=== PATIENT | female | born 1980 | race African-American/Black ===

== ENCOUNTER 2021-06-16 10:39 | Inpatient (IN) ==
--- NOTE | 2021-06-16 11:17 | DR.GENAD ---
HPI Time Seen Time Seen by Provider: 06/16/21 11:14 Complaint/Symptoms Chief Complaint Doctors Comments: 40 y/o female, seen here 3 days ago for new onset of DM, presents feeling worse. Started with nausea, vomiting last pm. Can't keep anything down. Denies abdominal pain. No BM x 10 days. + lightheaded, dizzy, with palpitations, feeling short of breath. No fever, cough, chest pain. Was started on metformin 2 days ago. Thinks she has kept that down. COVID-19 Coronavirus risk:travel/contact w/high risk person: No Has patient experienced Coronavirus symptoms: No Nurses notes reviewed Nurses Notes Review: Yes Source History Provided: Patient Mode of Arrival Mode of Arrival: Ambulatory PMH PMH Past Medical History: Diabetes, Dyslipidemia and Hypothyroidism Past Surgical History: No Family History Family Medical History: Diabetes Mellitus Social History Does patient currently use any type of tobacco product: No Does any household member use tobacco: No Do you use any recreational Drugs:: No ROS Review of Systems Constitutional: Weakness; negative Fever Eyes: No Symptoms Reported ENTM: No Symptoms Reported Respiratoy: Short of Breath Cardiovascular: No Symptoms Reported Gastrointestinal/Abdominal: Constipation, Nausea and Vomiting Genitourinary: No Symptoms Reported Neurological: Weakness and Dizziness Musculoskeletal: No Symptoms Reported Integumentary: No Symptoms Reported Hematologic/Lymphatic: No Symptoms Reported Psychiatric: No Symptoms Reported All Other Systems: Reviewed and Negative PE Vital Signs Vitals: Temperature 97.6 F Pulse Rate 73 Respiratory Rate 25 Blood Pressure [Left Arm] 126/75 Blood Pressure 137/83 O2 Sat by Pulse Oximetry 100 General Limitations: No Limitations General Appearance: Alert and In No Apparent Distress Eyes Eye exam: Normal Appearance, PERRL and EOMI ENT ENT Exam: Normal Exam and Mucous Membranes Moist Throat Exam: Normal Inspection Neck Neck Exam: Normal Inspection and Full ROM Chest Chest Inspection: Normal Inspection Respiratory Respiratory Exam: Normal Lung Sounds Bilat; negative Accessory Muscle Use and Respiratory Distress Respiratory Exam: Bilateral: Clear to Auscultation Cardiovascular Cardiovascular Exam: Regular Rate, Normal Rhythm and Normal Heart Sounds Abdominal Exam Abdominal Exam: Normal Inspection, Normal Bowel Sounds and Soft; negative Tenderness Extremities Extremities Exam: Normal Inspection and Full ROM; negative Edema Back Back Exam: Normal Inspection Neurologic Neurological Exam: Alert, Oriented X3 and CN II-XII Intact; negative Motor Sensory Deficit Psychiatric Psychiatric Exam: Normal Affect Skin Skin Exam: Warm and Dry MDM Differential Diagnosis Differential Diagnosis: uncontrolled DM, DKA, vomiting, gastritis, pancreatitis COURSE Treatment Treatment: 40 y/o female, with recent h/o new onset DM, returns with persistent vomiting since last pm. Feels dyspnea, pulse ox 100%. W/u initiated. Given IV fluids, IV zofran. 1327 - glucose 337, low bicarb, small acetone. Given IV regualar insulin, 4 U. Recommend admission for further treatment. 1445 - di scussed with Dr Gonzales initially, accepts the admission. Then realized we had the wrong [employer], sees Leny Bhandari, is a pt of Dr Lazar. Disucssed with him, accepts the admission. [facility]OR Labs Reviewed Laboratory Results Reviewed?: Yes Result Diagrams: 06/16/21 11:47 06/16/21 11:47 Laboratory: WBC 8.7 X10^3/uL (3.6-10.0) 06/16/21 11:47 RBC 5.72 X10^6/uL (3.5-5.4) H 06/16/21 11:47 Hgb 16.6 g/dL (12.0-16.0) H 06/16/21 11:47 Hct 50.5 % (36.0-47.0) H 06/16/21 11:47 MCV 88.2 fL (80.0-100.0) 06/16/21 11:47 MCH 29.0 pg (27.0-34.0) 06/16/21 11:47 MCHC 32.9 g/dL (33.0-35.0) L 06/16/21 11:47 RDW 13.2 % (11.6-16.5) 06/16/21 11:47 Plt Count 357 X10^3/uL (150.0-450.0) 06/16/21 11:47 MPV 9.5 fL (7.4-11.0) 06/16/21 11:47 Neut % (Auto) 71.1 % (42.0-75.0) 06/16/21 11:47 Lymph % (Auto) 21.4 % (21.0-51.0) 06/16/21 11:47 [place] % (Auto) 6.6 % (0.0-13.0) 06/16/21 11:47 Eos % (Auto) 0.2 % (0.9-2.9) L 06/16/21 11:47 Baso % (Auto) 0.7 % (0.2-1.0) 06/16/21 11:47 Neut # (Auto) 6.2 x10^3/uL (2.2-4.8) H 06/16/21 11:47 Lymph # (Auto) 1.9 X10^3/uL (1.3-2.9) 06/16/21 11:47 [place] # (Auto) 0.6 x10^3/uL (0.3-0.8) 06/16/21 11:47 Eos # (Auto) 0.0 x10^3/uL (0.0-0.2) 06/16/21 11:47 Baso # (Auto) 0.1 X10^3/uL (0.0-0.1) 06/16/21 11:47 Absolute Nucleated RBC 0.2 /100WBC 06/16/21 11:47 Sample Site Rr 06/16/21 11:39 ABG pH 7.190 (7.35-7.45) L* 06/16/21 11:39 ABG pCO2 14.0 mmHg (35.0-45.0) L* 06/16/21 11:39 ABG pO2 113.0 mmHg (80.0-100.0) H 06/16/21 11:39 ABG HCO3 5.3 mmol/L (22-26) L* 06/16/21 11:39 ABG O2 Saturation 97.0 % (90-100) 06/16/21 11:39 ABG Base Excess -20.5 mmol/L (-2.0-2.0) L 06/16/21 11:39 Jose Test Pos 06/16/21 11:39 A-a Gradient 19.0 mmHg 06/16/21 11:39 FiO2 21.0 06/16/21 11:39 Blood Gas Comments Roseanna well cb 06/16/21 11:39 Sodium 127 mmol/L (136-145) L 06/16/21 11:47 Corrected Sodium 133 mmol/L (136-145) L 06/16/21 11:47 Potassium 5.6 mmol/L (3.5-5.1) H 06/16/21 11:47 Chloride 95 mmol/L (98-107) L 06/16/21 11:47 Carbon Dioxide 11.2 mmol/L (21-32) L* 06/16/21 11:47 BUN 9 mg/dL (7-18) 06/16/21 11:47 Creatinine 1.11 mg/dL (0.55-1.02) H 06/16/21 11:47 Est GFR (MDRD) Af Amer > 60 (>60) 06/16/21 11:47 Est GFR (MDRD) Non-Af 57 (>60) L 06/16/21 11:47 Glucose 357 mg/dL (65-99) H 06/16/21 11:47 POC Glucose (mg/dL) 277 mg/dL (65-99) H 06/16/21 15:10 Lactic Acid 1.4 mmol/L (0.4-2.0) 06/16/21 11:47 Calcium 9.0 mg/dL (8.5-10.1) 06/16/21 11:47 Corrected Calcium TNP 06/16/21 11:47 Total Bilirubin 0.60 mg/dL (0.2-1.0) 06/16/21 11:47 AST 21 Units/L (15-37) 06/16/21 11:47 ALT 25 Units/L (12-78) 06/16/21 11:47 Alkaline Phosphatase 117 Units/L (46-116) H 06/16/21 11:47 Creatine Kinase 90 Units/L (26-192) 06/16/21 11:47 CK-MB (CK-2) < 1.0 ng/mL (0-4.0) 06/16/21 11:47 CK/CKMB % Calc 1.1 % (<4) 06/16/21 11:47 Troponin I High Sens 4.0 ng/L (4.0-60.0) 06/16/21 11:47 Total Protein 9.3 g/dL (6.4-8.2) H 06/16/21 11:47 Albumin 4.4 g/dL (3.4-5.0) 06/16/21 11:47 Globulin 4.9 g/dL (2.5-4.5) H 06/16/21 11:47 Albumin/Globulin Ratio 0.9 Ratio (1.1-2.1) L 06/16/21 11:47 Lipase 137 Units/L (73-393) 06/16/21 11:47 Specimen Type Clean catch urine 06/16/21 12:52 Urine Color Pale yellow (YELLOW) 06/16/21 12:52 Urine Appearance Clear (CLEAR) 06/16/21 12:52 Urine pH 5.0 (5.0 - 8.0) 06/16/21 12:52 Ur Specific [place] 1.030 (1.000-1.030) 06/16/21 12:52 Urine Protein 3+ (NEGATIVE) 06/16/21 12:52 Urine Glucose (UA) 4+ (NEGATIVE) 06/16/21 12:52 Urine Ketones 4+ (NEGATIVE) 06/16/21 12:52 Urine Blood 4+ (NEGATIVE) 06/16/21 12:52 Urine Nitrite Negative (NEGATIVE) 06/16/21 12:52 Urine Bilirubin Negative (NEGATIVE) 06/16/21 12:52 Urine Urobilinogen Normal (NORMAL) 06/16/21 12:52 Ur Leukocyte Esterase Negative (NEGATIVE) 06/16/21 12:52 Urine RBC 5-10 /HPF (0-3) A 06/16/21 12:52 Urine WBC 3-5 /HPF (0-5) 06/16/21 12:52 Ur Squamous Epith Cells Few /HPF (NEGATIVE) 06/16/21 12:52 Urine Bacteria Trace /HPF (NEGATIVE) 06/16/21 12:52 Urine Trichomonas Few /HPF (NEGATIVE) 06/16/21 12:52 Urine Yeast Moderate /HPF (NEGATIVE) 06/16/21 12:52 Ur Culture Indicated? No/not indicated 06/16/21 12:52 Acetone, Semi-Quant Small (NEGATIVE) H 06/16/21 11:47 Other Results Comments: ABG shows low pH. Bicarb low. Glucose 357. XRAY XRAY Interpreted by: Both X-ray Results: CXR without acute abnormalities. EKG Rate: 72 [place]: Normal Rhythm: NSR Block: None Hypertrophy: LAE ST: Nonsp Opioid Opioid Risk Tool Age (Scottie box if 16-45): No History of Preadolescent Sexual Abuse: No Total: 0 Total Score Risk Category: Low Risk Copyright: Jasiel ZUNIGA predicting aberrant behaviors Diagnosis Discharge Problem: Acidosis Uncontrolled diabetes mellitus Qualifiers: Diabetes mellitus type: type 2 Glycemic state: with hyperglycemia Qualified Code(s): E11.65 - Type 2 diabetes mellitus with hyperglycemia Vomiting Qualifiers: Vomiting type: unspecified Nausea presence: with nausea Qualified Code(s): R11.2 - Nausea with vomiting, unspecified
[2021-06-16] MEDS ORDERED: NS 1,000 ML IV 1,000 ML ONE ×3 (11:18→17:13)
[2021-06-16] MEDS ORDERED: NS 1,000 ML IV 1,000 ML IV ONE ×2 (11:22→13:27)
[2021-06-16 11:44] LABS: ABG BASE EXCESS -20.5 mmol/L (-2.0-2.0)
[2021-06-16 11:45] LABS: ABG ALLEN TEST POS; ABG HCO3 5.3 mmol/L (22-26)
[2021-06-16 11:54] LABS: BASOPHILS # (AUTO) 0.1 X10^3/uL (0.0-0.1); BASOPHILS % (AUTO) 0.7 % (0.2-1.0); EOSINOPHILS % (AUTO) 0.2 % (0.9-2.9); HEMATOCRIT 50.5 % (36.0-47.0); HEMOGLOBIN 16.6 g/dL (12.0-16.0); LYMPHOCYTES # (AUTO) 1.9 X10^3/uL (1.3-2.9); LYMPHOCYTES % (AUTO) 21.4 % (21.0-51.0); MEAN CORPUSCULAR HGB CONC 32.9 g/dL (33.0-35.0); MEAN CORPUSCULAR VOLUME 88.2 fL (80.0-100.0); MEAN PLATELET VOLUME 9.5 fL (7.4-11.0); MONOCYTES # (AUTO) 0.6 x10^3/uL (0.3-0.8); MONOCYTES % (AUTO) 6.6 % (0.0-13.0); NEUTROPHILS # (AUTO) 6.2 x10^3/uL (2.2-4.8); NEUTROPHILS % (AUTO) 71.1 % (42.0-75.0); RED BLOOD COUNT 5.72 X10^6/uL (3.5-5.4); RED CELL DISTRIBUTION WIDTH 13.2 % (11.6-16.5); WHITE BLOOD COUNT 8.7 X10^3/uL (3.6-10.0)
[2021-06-16 12:10] LABS: LACTIC ACID 1.4 mmol/L (0.4-2.0)
[2021-06-16 12:18] LABS: SERUM ACETONE SMALL (NEGATIVE)
[2021-06-16 12:34] LABS: ALANINE AMINOTRANSFERASE 25 Units/L (12-78); ALBUMIN 4.4 g/dL (3.4-5.0); ALKALINE PHOSPHATASE 117 Units/L (46-116); ASPARTATE AMINO TRANSFERASE 21 Units/L (15-37); BLOOD UREA NITROGEN 9 mg/dL (7-18); CHLORIDE 95 mmol/L (98-107); CKMB % 1.1 % (<4); COR NA(FOR HYPERGLY) 133 mmol/L (136-145); CREATINE KINASE 90 Units/L (26-192); CREATINE KINASE MB < 1.0 ng/mL (0-4.0); CREATININE 1.11 mg/dL (0.55-1.02); LIPASE 137 Units/L (73-393); SODIUM 127 mmol/L (136-145); TOTAL PROTEIN 9.3 g/dL (6.4-8.2); eGFR NON BLACK RACES 57 (>60)
[2021-06-16 12:38] LABS: CARBON DIOXIDE 11.2 mmol/L (21-32)
--- NOTE | 2021-06-16 12:41 | RAD ---
HISTORYChest painSTUDYChest AP [id number] t size is normal. Jessica are normal. Lung pabon are clear. No pleural effusions are identified. Bony thorax is unremarkable.IMPRESSIONNo significant abnormality identifiedElectronically signed by: SILVIA MORGAN (Jun 16, 2021 12:40:21)
[2021-06-16 13:08] LABS: BILIRUBIN,URINE NEGATIVE (NEGATIVE); BLOOD/HEMOGLOBIN,URINE 4+ (NEGATIVE); GLUCOSE, URINE 4+ (NEGATIVE); KETONES,URINE 4+ (NEGATIVE); LEUKOCYTE ESTERASE ,URINE NEGATIVE (NEGATIVE); NITRITES,URINE NEGATIVE (NEGATIVE); PROTEIN,URINE 3+ (NEGATIVE); UROBILINOGEN,URINE NORMAL (NORMAL)
[2021-06-16 13:18] LABS: APPEARANCE,URINE CLEAR (CLEAR); COLOR,URINE PALE YELLOW (YELLOW)
[2021-06-16 13:19] LABS: BACTERIA,URINE TRACE /HPF (NEGATIVE); SQUAMOUS EPITHELIAL CELL,UR FEW /HPF (NEGATIVE); TRICHOMONAS,URINE FEW /HPF (NEGATIVE); YEAST,URINE MODERATE /HPF (NEGATIVE)
[2021-06-16] MEDS ORDERED: NovoLIN R (or HumuLIN R) IV ONE (13:28)
[2021-06-16] MEDS: ZOFRAN INJ 4 MG VIAL IVP ONE ×2 (13:30→14:13)
[2021-06-16] MEDS ORDERED: ZOFRAN INJ 4 MG VIAL ONE ×2 (14:03→16:28)
[2021-06-16] MEDS ORDERED: NovoLIN R (or HumuLIN R) ONE (14:06)
[2021-06-16] MEDS ORDERED: ZOFRAN INJ 4 MG VIAL IVP ONE (15:31)
[2021-06-16] MEDS ORDERED: PROTONIX INJ 40 MG VIAL IVP ONE (15:31)
[2021-06-16] MEDS ORDERED: PROTONIX INJ 40 MG VIAL ONE (16:28)
[2021-06-16] MEDS ORDERED: ZOFRAN INJ 4 MG VIAL IVP PRN (17:32)
[2021-06-16] MEDS: NS 1,000 ML IV 1,000 ML IV SCH (17:59)
[2021-06-16] MEDS: NovoLIN R (or HumuLIN R) SUBCUT PRN ×3 (18:11→21:49)
[2021-06-16] MEDS: TYLENOL 325 MG TAB PO PRN (18:12)
[2021-06-16] MEDS ORDERED: XYLOCAINE 1 % (PLAIN) ONE (19:49)
[2021-06-16] MEDS ORDERED: SNACK - Diabetic Appropriate PO SCH (20:00)
[2021-06-16] MEDS: SNACK - Diabetic Appropriate PO SCH (20:35)
[2021-06-16 20:38] LABS: ALANINE AMINOTRANSFERASE 20 Units/L (12-78); ALBUMIN 3.6 g/dL (3.4-5.0); ALKALINE PHOSPHATASE 94 Units/L (46-116); ASPARTATE AMINO TRANSFERASE 12 Units/L (15-37); BLOOD UREA NITROGEN 6 mg/dL (7-18); CHLORIDE 100 mmol/L (98-107); COR NA(FOR HYPERGLY) 133 mmol/L (136-145); CREATININE 0.67 mg/dL (0.55-1.02); SODIUM 129 mmol/L (136-145); TOTAL PROTEIN 7.4 g/dL (6.4-8.2); eGFR NON BLACK RACES > 60 (>60)
[2021-06-16 20:40] LABS: CARBON DIOXIDE 7.9 mmol/L (21-32)
--- NOTE | 2021-06-16 20:48 | RAD ---
EXAM: CHEST X-RAYHISTORY: Central line placement verification.TECHNIQUE: AP CXR dated June 16, 2021 at 8:13 PM.COMPARISON: CXR dated June 16, 2021 at 11:30 AMFINDINGS:There is a right subclavian central venous catheter with distal tip in the proximal right atrium, approximately 3 cm distal to the optimal proximal cavoatrial junction. Consider partial withdrawal for optimal positioning and to mitigate risk of inducing cardiac ectopy as clinically warranted. Recommend careful clinical correlation to ensure venous blood return.The heart size and mediastinum are within normal limits. The lung pabon and costophrenic angles are clear. There is no acute parenchymal infiltrate, pleural effusion, or pneumothorax seen. The visualized bony structures are within normal limits.IMPRESSION:1. No evidence for acute cardiopulmonary disease seen.2. Right subclavian central venous catheter with distal tip in the proximal right atrium, approximately 3 cm distal to the optimal proximal cavoatrial junction.3. Consider partial withdrawal for optimal positioning and to mitigate risk of inducing cardiac ectopy as clinically warranted.4. Recommend careful clinical correlation to ensure venous blood return.Electronically signed by: Estefania Fuentes (Jun 16, 2021 20:48:24)
[2021-06-16] MEDS: NORCO 5/325 MG TAB PO PRN (21:48)
[2021-06-16] MEDS ORDERED: ULTRAM PO PRN (22:55)
[2021-06-17] MEDS: NS 1,000 ML IV 1,000 ML IV SCH (01:41)
[2021-06-17] MEDS: NovoLIN R (or HumuLIN R) SUBCUT PRN ×2 (01:42→03:36)
[2021-06-17 05:39] LABS: BASOPHILS # (AUTO) 0.1 X10^3/uL (0.0-0.1); BASOPHILS % (AUTO) 0.7 % (0.2-1.0); EOSINOPHILS # (AUTO) 0.1 x10^3/uL (0.0-0.2); EOSINOPHILS % (AUTO) 0.7 % (0.9-2.9); HEMATOCRIT 40.6 % (36.0-47.0); LYMPHOCYTES # (AUTO) 2.6 X10^3/uL (1.3-2.9); LYMPHOCYTES % (AUTO) 28.1 % (21.0-51.0); MEAN CORPUSCULAR HEMOGLOBIN 28.8 pg (27.0-34.0); MEAN CORPUSCULAR HGB CONC 32.8 g/dL (33.0-35.0); MEAN CORPUSCULAR VOLUME 87.9 fL (80.0-100.0); MEAN PLATELET VOLUME 9.4 fL (7.4-11.0); MONOCYTES # (AUTO) 0.9 x10^3/uL (0.3-0.8); MONOCYTES % (AUTO) 10.3 % (0.0-13.0); NEUTROPHILS # (AUTO) 5.5 x10^3/uL (2.2-4.8); NEUTROPHILS % (AUTO) 60.2 % (42.0-75.0); RED BLOOD COUNT 4.62 X10^6/uL (3.5-5.4); RED CELL DISTRIBUTION WIDTH 13.3 % (11.6-16.5); WHITE BLOOD COUNT 9.1 X10^3/uL (3.6-10.0)
[2021-06-17 05:49] LABS: ALANINE AMINOTRANSFERASE 18 Units/L (12-78); ALBUMIN 3.4 g/dL (3.4-5.0); ALKALINE PHOSPHATASE 84 Units/L (46-116); ASPARTATE AMINO TRANSFERASE 14 Units/L (15-37); BLOOD UREA NITROGEN 5 mg/dL (7-18); CALCIUM 7.9 mg/dL (8.5-10.1); CHLORIDE 102 mmol/L (98-107); COR NA(FOR HYPERGLY) 132 mmol/L (136-145); CREATININE 0.62 mg/dL (0.55-1.02); SODIUM 130 mmol/L (136-145); eGFR NON BLACK RACES > 60 (>60)
[2021-06-17 05:57] LABS: ABG BASE EXCESS -15.7 mmol/L (-2.0-2.0)
[2021-06-17 05:59] LABS: ABG ALLEN TEST POS; ABG HCO3 9.6 mmol/L (22-26)
[2021-06-17 06:05] LABS: CARBON DIOXIDE 9.3 mmol/L (21-32)
[2021-06-17] MEDS ORDERED: POTASSIUM CHL 60 MEQ/NS 0.45% 500 ML IV PRN (06:06)
[2021-06-17] MEDS ORDERED: POTASSIUM CHLORIDE LIQ 20 MEQ UDC PO PRN (06:06)
[2021-06-17] MEDS ORDERED: K-RIDER 10 MEQ/NS 100 ML 10 MEQ/100 ML BAG IV PRN (06:06)
[2021-06-17] MEDS ORDERED: KLOR-CON PO PRN (06:06)
[2021-06-17] MEDS ORDERED: POTASSIUM CHL 40 MEQ/NS 0.45% 500 ML IV PRN (06:06)
[2021-06-17] MEDS ORDERED: MICRO K EXTEN CAP 10 MEQ PO PRN (06:06)
[2021-06-17] MEDS: K-DUR TAB 20 MEQ PO PRN ×3 (06:14→22:34)
[2021-06-17] MEDS: NORCO 5/325 MG TAB PO PRN (06:15)
[2021-06-17 06:18] LABS: HEMOGLOBIN 13.3 g/dL (12.0-16.0)
[2021-06-17] MEDS ORDERED: PROTONIX INJ 40 MG VIAL IVP SCH (09:00)
[2021-06-17] MEDS ORDERED: ZANAFLEX PO PRN (09:13)
[2021-06-17 09:33] LABS: SERUM ACETONE SMALL (NEGATIVE)
[2021-06-17 09:46] LABS: CKMB % 0.8 % (<4); CREATINE KINASE 128 Units/L (26-192); CREATINE KINASE MB < 1.0 ng/mL (0-4.0); TSH (3RD GENERATION) 1.099 uIU/mL (0.358-3.74)
[2021-06-17] MEDS: PROTONIX TAB 40 MG PO SCH (09:48)
[2021-06-17] MEDS: D5W 1,000 ML IV 1,000 ML IV SCH ×2 (09:53→22:30)
[2021-06-17] MEDS: MYXREDLIN 100 UNIT/100 ML BAG 100 UNIT/100 ML PLAST..BAG IV PRN (09:54)
[2021-06-17] MEDS: MAGNESIUM SULFATE 1 GRAM/100 mL PREMIX 1 G/100 ML BAG IV PRN ×2 (09:54→11:33)
[2021-06-17 13:10] LABS: BLOOD UREA NITROGEN 4 mg/dL (7-18); CARBON DIOXIDE 15.6 mmol/L (21-32); CHLORIDE 100 mmol/L (98-107); COR NA(FOR HYPERGLY) 134 mmol/L (136-145); CREATININE 0.76 mg/dL (0.55-1.02); SODIUM 130 mmol/L (136-145); eGFR NON BLACK RACES > 60 (>60)
--- NOTE | 2021-06-17 13:22 | RAD ---
HISTORYDiabetic ketoacidosisSTUDYChest AP [id number] e is a right-sided central line with its tip likely just distal to the cavoatrial junction. Heart size is normal. Jessica are normal. Lung pabon are clear. No pleural effusion or pneumothorax is identified. Bony thorax is unremarkable.IMPRESSIONNo significant abnormality identifiedElectronically signed by: SILVIA MORGAN (Jun 17, 2021 13:21:30)
[2021-06-17] MEDS: SNACK - Diabetic Appropriate PO SCH (20:13)
[2021-06-17] MEDS: LIPITOR TAB 40 MG PO SCH (20:19)
[2021-06-17] MEDS: NEURONTIN CAP 400 MG PO SCH (20:19)
[2021-06-17] MEDS: RESTORIL CAP 15 MG PO PRN (20:20)
[2021-06-18] MEDS: MYXREDLIN 100 UNIT/100 ML BAG 100 UNIT/100 ML PLAST..BAG IV PRN (04:10)
[2021-06-18] MEDS: SYNTHROID 25 mcg TAB PO SCH (05:33)
[2021-06-18] MEDS: FIORICET TAB PO PRN ×2 (05:56→08:13)
[2021-06-18 06:02] LABS: ABG BASE EXCESS -8.7 mmol/L (-2.0-2.0)
[2021-06-18 06:03] LABS: ABG ALLEN TEST POS; ABG HCO3 15.3 mmol/L (22-26)
[2021-06-18 06:49] LABS: BASOPHILS % (AUTO) 0.6 % (0.2-1.0); EOSINOPHILS # (AUTO) 0.2 x10^3/uL (0.0-0.2); EOSINOPHILS % (AUTO) 2.8 % (0.9-2.9); HEMATOCRIT 37.7 % (36.0-47.0); HEMOGLOBIN 12.8 g/dL (12.0-16.0); LYMPHOCYTES # (AUTO) 1.9 X10^3/uL (1.3-2.9); MEAN CORPUSCULAR HEMOGLOBIN 28.8 pg (27.0-34.0); MEAN CORPUSCULAR HGB CONC 33.9 g/dL (33.0-35.0); MEAN PLATELET VOLUME 9.5 fL (7.4-11.0); MONOCYTES # (AUTO) 0.8 x10^3/uL (0.3-0.8); MONOCYTES % (AUTO) 13.2 % (0.0-13.0); NEUTROPHILS # (AUTO) 2.9 x10^3/uL (2.2-4.8); NEUTROPHILS % (AUTO) 50.4 % (42.0-75.0); RED BLOOD COUNT 4.43 X10^6/uL (3.5-5.4); RED CELL DISTRIBUTION WIDTH 13.3 % (11.6-16.5); WHITE BLOOD COUNT 5.7 X10^3/uL (3.6-10.0)
[2021-06-18 06:59] LABS: ALANINE AMINOTRANSFERASE 18 Units/L (12-78); ALBUMIN 3.2 g/dL (3.4-5.0); ALKALINE PHOSPHATASE 81 Units/L (46-116); ASPARTATE AMINO TRANSFERASE 15 Units/L (15-37); BLOOD UREA NITROGEN 3 mg/dL (7-18); CALCIUM 8.2 mg/dL (8.5-10.1); CARBON DIOXIDE 18.5 mmol/L (21-32); CHLORIDE 104 mmol/L (98-107); COR CA(FOR HYPOALB) 8.8 mg/dL (8.5-10.1); COR NA(FOR HYPERGLY) 135 mmol/L (136-145); CREATININE 0.61 mg/dL (0.55-1.02); MAGNESIUM 2.1 mg/dL (1.7-2.9); SODIUM 132 mmol/L (136-145); TOTAL PROTEIN 6.5 g/dL (6.4-8.2); eGFR NON BLACK RACES > 60 (>60)
[2021-06-18 07:03] LABS: SERUM ACETONE SMALL (NEGATIVE)
[2021-06-18] MEDS: PROTONIX TAB 40 MG PO SCH (08:13)
[2021-06-18 08:29] VITALS: BMI 36.2
--- NOTE | 2021-06-18 08:51 | DR.H&P ---
H&P History & Physical for Day of: H&P Date: 06/17/21 Chief Complaint Chief Complaint: Nausea, Headache, Generalized weakness Increased urinary frequency Allergies Allergies Allergy/AdvReac Type Severity Reaction Status Date / Time No Known Drug Allergies Allergy Verified 06/16/21 12:37 History of Present Illness History of Present Illness: Pt is a 40 year old female past medical history of Hypothyroidism, HLD, and recent diagnosis of Diabetes mellitus. Pt did present to the ED a few days ago and was noted to be hyperglycemic, given IVF bolus, insulin, and started on metformin. She reports that since then her symptoms of weakness, headache, nausea, has progressively worsened. She reports also polyuria and polydipsia. In the ED patient was noted to be acidotic. Labs/imaging: Wbc 9.1, Hgb 13.3, Plt 270, Na 130, K 3.5, Creatinine 0.62, Glucose 202, LA 1.4, A1c 11.8, ABG was obtained that revealed: pH 7.19, pCO2 14, pO2 113, HCO3 5.3, O2sat 97% on RA, UA positive for ketones. Pt was given 2L NS bolus and insulin. There was difficulty getting IV access, consulted surgery for central line placement. Due to patient's acidosis, will start her on DKA prot ocol with IVF D5w@100ml/h, insulin gtt, scheduled FSBG, and repeat in BMP at 1PM. Restart home medications, except for metformin at this time. Continue to closely monitor and follow up labs. Time spent on clinical assessment, reviewing labs and imaging, decision making, and documentation greater than 45 minutes. Past Medical History Past Medical History: Diabetes, Dyslipidemia and Hypothyroidism Past Surgical History Surgical History: Hysterectomy Family History Family Medical History: Diabetes Mellitus and Hypertension Social History Does patient currently use any type of tobacco product: No Does any household member use tobacco: No Alcohol Use: None Medications Home Medications: No Known Drug Allergies Allergy (Verified 06/16/21 12:37) Labs Result Diagrams: 06/18/21 05:26 06/18/21 05:26 Labs: Laboratory WBC 5.7 X10^3/uL (3.6-10.0) 06/18/21 05:26 RBC 4.43 X10^6/uL (3.5-5.4) 06/18/21 05:26 Hgb 12.8 g/dL (12.0-16.0) 06/18/21 05:26 Hct 37.7 % (36.0-47.0) 06/18/21 05:26 MCV 85.0 fL (80.0-100.0) 06/18/21 05:26 MCH 28.8 pg (27.0-34.0) 06/18/21 05:26 MCHC 33.9 g/dL (33.0-35.0) 06/18/21 05:26 RDW 13.3 % (11.6-16.5) 06/18/21 05:26 Plt Count 237 X10^3/uL (150.0-450.0) 06/18/21 05:26 MPV 9.5 fL (7.4-11.0) 06/18/21 05:26 Neut % (Auto) 50.4 % (42.0-75.0) 06/18/21 05:26 Lymph % (Auto) 33.0 % (21.0-51.0) 06/18/21 05:26 [place] % (Auto) 13.2 % (0.0-13.0) H 06/18/21 05:26 Eos % (Auto) 2.8 % (0.9-2.9) 06/18/21 05:26 Baso % (Auto) 0.6 % (0.2-1.0) 06/18/21 05:26 Neut # (Auto) 2.9 x10^3/uL (2.2-4.8) 06/18/21 05:26 Lymph # (Auto) 1.9 X10^3/uL (1.3-2.9) 06/18/21 05:26 [place] # (Auto) 0.8 x10^3/uL (0.3-0.8) 06/18/21 05:26 Eos # (Auto) 0.2 x10^3/uL (0.0-0.2) 06/18/21 05:26 Baso # (Auto) 0.0 X10^3/uL (0.0-0.1) 06/18/21 05:26 Absolute Nucleated RBC 0.1 /100WBC 06/18/21 05:26 Sample Site Llrad 06/18/21 06:02 ABG pH 7.360 (7.35-7.45) 06/18/21 06:02 ABG pCO2 27.0 mmHg (35.0-45.0) L 06/18/21 06:02 ABG pO2 85.0 mmHg (80.0-100.0) 06/18/21 06:02 ABG HCO3 15.3 mmol/L (22-26) L* 06/18/21 06:02 ABG O2 Saturation 96.0 % (90-100) 06/18/21 06:02 ABG Base Excess -8.7 mmol/L (-2.0-2.0) L 06/18/21 06:02 Jose Test Pos 06/18/21 06:02 A-a Gradient 31.0 mmHg 06/18/21 06:02 FiO2 21.0 06/18/21 06:02 Blood Gas Comments Roseanna well-mtf 06/18/21 06:02 Sodium 132 mmol/L (136-145) L 06/18/21 05:26 Corrected Sodium 135 mmol/L (136-145) L 06/18/21 05:26 Potassium 3.8 mmol/L (3.5-5.1) 06/18/21 05:26 Chloride 104 mmol/L (98-107) 06/18/21 05:26 Carbon Dioxide 18.5 mmol/L (21-32) L 06/18/21 05:26 BUN 3 mg/dL (7-18) L 06/18/21 05:26 Creatinine 0.61 mg/dL (0.55-1.02) 06/18/21 05:26 Est GFR (MDRD) Af Amer > 60 (>60) 06/18/21 05:26 Est GFR (MDRD) Non-Af > 60 (>60) 06/18/21 05:26 Glucose 231 mg/dL (65-99) H 06/18/21 05:26 POC Glucose (mg/dL) 228 mg/dL (65-99) H 06/18/21 08:07 Hemoglobin A1c 11.8 % 06/17/21 05:00 Lactic Acid 1.4 mmol/L (0.4-2.0) 06/16/21 11:47 Calcium 8.2 mg/dL (8.5-10.1) L 06/18/21 05:26 Corrected Calcium 8.8 mg/dL (8.5-10.1) 06/18/21 05:26 Magnesium 2.1 mg/dL (1.7-2.9) 06/18/21 05:26 Total Bilirubin 0.70 mg/dL (0.2-1.0) 06/18/21 05:26 AST 15 Units/L (15-37) 06/18/21 05:26 ALT 18 Units/L (12-78) 06/18/21 05:26 Alkaline Phosphatase 81 Units/L (46-116) 06/18/21 05:26 Creatine Kinase 128 Units/L (26-192) 06/17/21 08:48 CK-MB (CK-2) < 1.0 ng/mL (0-4.0) 06/17/21 08:48 CK/CKMB % Calc 0.8 % (<4) 06/17/21 08:48 Troponin I High Sens 30.4 ng/L (4.0-60.0) 06/17/21 08:48 Total Protein 6.5 g/dL (6.4-8.2) 06/18/21 05:26 Albumin 3.2 g/dL (3.4-5.0) L 06/18/21 05:26 Globulin 3.3 g/dL (2.5-4.5) 06/18/21 05:26 Albumin/Globulin Ratio 1.0 Ratio (1.1-2.1) L 06/18/21 05:26 Lipase 137 Units/L (73-393) 06/16/21 11:47 Free T4 1.10 ng/dL (0.76-1.46) 06/17/21 08:48 TSH 3rd Generation 1.099 uIU/mL (0.358-3.74) 06/17/21 08:48 Specimen Type Clean catch urine 06/16/21 12:52 Urine Color Pale yellow (YELLOW) 06/16/21 12:52 Urine Appearance Clear (CLEAR) 06/16/21 12:52 Urine pH 5.0 (5.0 - 8.0) 06/16/21 12:52 Ur Specific [place] 1.030 (1.000-1.030) 06/16/21 12:52 Urine Protein 3+ (NEGATIVE) 06/16/21 12:52 Urine Glucose (UA) 4+ (NEGATIVE) 06/16/21 12:52 Urine Ketones 4+ (NEGATIVE) 06/16/21 12:52 Urine Blood 4+ (NEGATIVE) 06/16/21 12:52 Urine Nitrite Negative (NEGATIVE) 06/16/21 12:52 Urine Bilirubin Negative (NEGATIVE) 06/16/21 12:52 Urine Urobilinogen Normal (NORMAL) 06/16/21 12:52 Ur Leukocyte Esterase Negative (NEGATIVE) 06/16/21 12:52 Urine RBC 5-10 /HPF (0-3) A 06/16/21 12:52 Urine WBC 3-5 /HPF (0-5) 06/16/21 12:52 Ur Squamous Epith Cells Few /HPF (NEGATIVE) 06/16/21 12:52 Urine Bacteria Trace /HPF (NEGATIVE) 06/16/21 12:52 Urine Trichomonas Few /HPF (NEGATIVE) 06/16/21 12:52 Urine Yeast Moderate /HPF (NEGATIVE) 06/16/21 12:52 Ur Culture Indicated? No/not indicated 06/16/21 12:52 Acetone, Semi-Quant Small (NEGATIVE) H 06/18/21 05:26 SARS CoV-2 RNA Rapid YUE Negative (NEGATIVE) 06/16/21 16:04 Review of Systems Constitutional: Weakness Eyes: No Symptoms Reported ENT: No Symptoms Reported Respiratory: No Symptoms Reported Cardiovascular: No Symptoms Reported Gastrointestinal: Nausea; denies Vomiting, Abdominal Pain, Diarrhea and Const ipation Genitourinary: Frequency Musculoskeletal: No Symptoms Reported Skin: No Symptoms Reported Neurological: No Symptoms Reported Physical Exam Vital Signs: Temperature 98.6 F Pulse Rate [Apical] 70 Pulse Rate 90 Respiratory Rate 18 Blood Pressure [Left Arm] 143/75 Blood Pressure 127/80 O2 Sat by Pulse Oximetry 99 Oriented: Normal Eyes: Normal Ear: Normal Nose: Normal Throat: Normal Respiratory: Clear Throughout Cardiovascular: Normal : Normal Auscultation: Bowel Sounds: Normal Palpation: Normal Tenderness: Normal Skin: Normal Musculoskeletal: Normal Psychiatric: Normal Mood Description: Calm and Appropriate Affect: Normal Speech Pattern: Clear and Appropriate Assessment/Plan (1) Uncontrolled diabetes mellitus: Qualifiers: Diabetes mellitus type: type 2 Glycemic state: with hyperglycemia Qualified Code(s): E11.65 - Type 2 diabetes mellitus with hyperglycemia Status: Acute Plan: DKA protocol (2) Acidosis: Status: Acute Review H&P Reviewed: Yes Patient was examined?: Yes
[2021-06-18] MEDS ORDERED: TORADOL 30 MG VIAL IVP ONE (11:01)
[2021-06-18 13:23] LABS: BLOOD UREA NITROGEN 3 mg/dL (7-18); CALCIUM 8.6 mg/dL (8.5-10.1); CARBON DIOXIDE 19.8 mmol/L (21-32); CHLORIDE 102 mmol/L (98-107); COR NA(FOR HYPERGLY) 135 mmol/L (136-145); CREATININE 0.73 mg/dL (0.55-1.02); SODIUM 132 mmol/L (136-145); eGFR NON BLACK RACES > 60 (>60)
[2021-06-18] MEDS: D5W 1,000 ML IV 1,000 ML IV SCH ×2 (17:11→18:05)
[2021-06-18] MEDS: K-DUR TAB 20 MEQ PO PRN (18:05)
[2021-06-18] MEDS: SNACK - Diabetic Appropriate PO SCH (20:26)
[2021-06-18] MEDS: NEURONTIN CAP 400 MG PO SCH (20:27)
[2021-06-18] MEDS: LIPITOR TAB 40 MG PO SCH (20:27)
[2021-06-18] MEDS: TYLENOL 325 MG TAB PO PRN (20:28)
[2021-06-18] MEDS: RESTORIL CAP 15 MG PO PRN (20:28)
[2021-06-19] MEDS: D5W 1,000 ML IV 1,000 ML IV SCH (03:55)
[2021-06-19] MEDS: SYNTHROID 25 mcg TAB PO SCH (05:48)
[2021-06-19 06:36] LABS: EOSINOPHILS # (AUTO) 0.1 x10^3/uL (0.0-0.2); EOSINOPHILS % (AUTO) 2.1 % (0.9-2.9); HEMATOCRIT 34.5 % (36.0-47.0); HEMOGLOBIN 11.9 g/dL (12.0-16.0); LYMPHOCYTES # (AUTO) 1.9 X10^3/uL (1.3-2.9); LYMPHOCYTES % (AUTO) 40.1 % (21.0-51.0); MEAN CORPUSCULAR HEMOGLOBIN 29.2 pg (27.0-34.0); MEAN CORPUSCULAR HGB CONC 34.5 g/dL (33.0-35.0); MEAN CORPUSCULAR VOLUME 84.7 fL (80.0-100.0); MONOCYTES # (AUTO) 0.7 x10^3/uL (0.3-0.8); MONOCYTES % (AUTO) 14.5 % (0.0-13.0); NEUTROPHILS % (AUTO) 42.3 % (42.0-75.0); RED BLOOD COUNT 4.07 X10^6/uL (3.5-5.4); RED CELL DISTRIBUTION WIDTH 13.1 % (11.6-16.5); WHITE BLOOD COUNT 4.7 X10^3/uL (3.6-10.0)
[2021-06-19 06:47] LABS: ALANINE AMINOTRANSFERASE 21 Units/L (12-78); ALKALINE PHOSPHATASE 79 Units/L (46-116); ASPARTATE AMINO TRANSFERASE 15 Units/L (15-37); BLOOD UREA NITROGEN 3 mg/dL (7-18); CALCIUM 8.3 mg/dL (8.5-10.1); CARBON DIOXIDE 19.7 mmol/L (21-32); CHLORIDE 103 mmol/L (98-107); COR CA(FOR HYPOALB) 9.1 mg/dL (8.5-10.1); COR NA(FOR HYPERGLY) 138 mmol/L (136-145); CREATININE 0.63 mg/dL (0.55-1.02); SODIUM 134 mmol/L (136-145); TOTAL PROTEIN 6.1 g/dL (6.4-8.2); eGFR NON BLACK RACES > 60 (>60)
[2021-06-19] MEDS: MYXREDLIN 100 UNIT/100 ML BAG 100 UNIT/100 ML PLAST..BAG IV PRN (07:46)
[2021-06-19] MEDS ORDERED: NovoLIN R (or HumuLIN R) SC PRN (08:39)
--- NOTE | 2021-06-19 08:43 | PCM.PROG ---
Progress Note Progress Note for Day of Date of Exam: 06/18/21 Subjective Subjective: Pt is a 40 year old female past medical history of Hypothyroidism, HLD, recent diagnosis of Diabetes mellitus admitted for Uncontrolled diabetes with hyperglycemia and acidosis. This morning she is resting comfortably in bed. She reports having a headache. Acidosis continues to improve as patient is on insulin gtt. She does have central line access. Labs/imaging: Wbc 5.7, Hgb 12.8, Plt 237, Na 135, K 3.8, Creatinine 0.61, Glucose 231, ABG was obtained that revealed: pH 7.36, pCO2 27, pO2 85, HCO3 15.3, O2sat 96% on RA. Will continue with DKA protocol with IVF D5w@100ml/h, insulin gtt, scheduled FSBG, and repeat in BMP at 1PM as acidosis gradually improves. Will give toradol 30mg x 1 dose for headache, she does have fioricet prn. Resume home medications. Continue to closely monitor and follow up labs. Time spent on clinical assessment, reviewing labs and imaging, decision making, and documentation greater than 45 minutes. Past Medical Family Social History Past Med/Fam/Surg Hx: No changes since H&P Allergies: Allergies No Known Drug Allergies Allergy (Verified 06/16/21 12:37) Review of Systems ROS: No change since H&P Vital Signs and I&O's Vital Signs: Temperature 97.8 F Pulse Rate [Apical] 70 Pulse Rate 104 Respiratory Rate 15 Blood Pressure [Left Arm] 143/75 Blood Pressure 131/79 O2 Sat by Pulse Oximetry 99 Intake and Output: Intake & Output 06/16/21 06/17/21 06/18/21 06/19/21 23:59 23:59 23:59 23:59 Intake Total 448 / 448 4143 / 4143 3388 / 3388 768 / 768 Output Total 1200 / 1200 1400 / 1400 300 / 300 Balance 448 / 448 2943 / 2943 1987 468 / 468 Physical Exam Oriented: Normal Eyes: Normal Ear: Normal Nose: Normal Throat: Normal Respiratory: Normal Cardiovascular: Normal : Normal Auscultation: Bowel Sounds: Normal Tenderness: Normal Skin: Normal Musculoskeletal: Normal Psychiatric: Normal Mood Description: Calm and Appropriate Affect: Normal Speech Pattern: Clear and Appropriate Laboratory and Diagnostics Result Diagrams: 06/19/21 05:28 06/19/21 05:28 Labs: 06/17/21 08:52 Blood Blood Culture - Preliminary 06/17/21 08:48 Blood Blood Culture - Preliminary Laboratory WBC 4.7 X10^3/uL (3.6-10.0) 06/19/21 05:28 RBC 4.07 X10^6/uL (3.5-5.4) 06/19/21 05:28 Hgb 11.9 g/dL (12.0-16.0) L 06/19/21 05:28 Hct 34.5 % (36.0-47.0) L 06/19/21 05:28 MCV 84.7 fL (80.0-100.0) 06/19/21 05:28 MCH 29.2 pg (27.0-34.0) 06/19/21 05:28 MCHC 34.5 g/dL (33.0-35.0) 06/19/21 05:28 RDW 13.1 % (11.6-16.5) 06/19/21 05:28 Plt Count 228 X10^3/uL (150.0-450.0) 06/19/21 05:28 MPV 10.0 fL (7.4-11.0) 06/19/21 05:28 Neut % (Auto) 42.3 % (42.0-75.0) 06/19/21 05:28 Lymph % (Auto) 40.1 % (21.0-51.0) 06/19/21 05:28 [place] % (Auto) 14.5 % (0.0-13.0) H 06/19/21 05:28 Eos % (Auto) 2.1 % (0.9-2.9) 06/19/21 05:28 Baso % (Auto) 1.0 % (0.2-1.0) 06/19/21 05:28 Neut # (Auto) 2.0 x10^3/uL (2.2-4.8) L 06/19/21 05:28 Lymph # (Auto) 1.9 X10^3/uL (1.3-2.9) 06/19/21 05:28 [place] # (Auto) 0.7 x10^3/uL (0.3-0.8) 06/19/21 05:28 Eos # (Auto) 0.1 x10^3/uL (0.0-0.2) 06/19/21 05:28 Baso # (Auto) 0.0 X10^3/uL (0.0-0.1) 06/19/21 05:28 Absolute Nucleated RBC 0.2 /100WBC 06/19/21 05:28 Sample Site [place]rad 06/18/21 06:02 ABG pH 7.360 (7.35-7.45) 06/18/21 06:02 ABG pCO2 27.0 mmHg (35.0-45.0) L 06/18/21 06:02 ABG pO2 85.0 mmHg (80.0-100.0) 06/18/21 06:02 ABG HCO3 15.3 mmol/L (22-26) L* 06/18/21 06:02 ABG O2 Saturation 96.0 % (90-100) 06/18/21 06:02 ABG Base Excess -8.7 mmol/L (-2.0-2.0) L 06/18/21 06:02 Jose Test Pos 06/18/21 06:02 A-a Gradient 31.0 mmHg 06/18/21 06:02 FiO2 21.0 06/18/21 06:02 Blood Gas Comments Roseanna well-mtf 06/18/21 06:02 Sodium 134 mmol/L (136-145) L 06/19/21 05:28 Corrected Sodium 138 mmol/L (136-145) 06/19/21 05:28 Potassium 3.1 mmol/L (3.5-5.1) L 06/19/21 05:28 Chloride 103 mmol/L (98-107) 06/19/21 05:28 Carbon Dioxide 19.7 mmol/L (21-32) L 06/19/21 05:28 BUN 3 mg/dL (7-18) L 06/19/21 05:28 Creatinine 0.63 mg/dL (0.55-1.02) 06/19/21 05:28 Est GFR (MDRD) Af Amer > 60 (>60) 06/19/21 05:28 Est GFR (MDRD) Non-Af > 60 (>60) 06/19/21 05:28 Glucose 274 mg/dL (65-99) H 06/19/21 05:28 POC Glucose (mg/dL) 271 mg/dL (65-99) H 06/19/21 05:31 Hemoglobin A1c 11.8 % 06/17/21 05:00 Lactic Acid 1.4 mmol/L (0.4-2.0) 06/16/21 11:47 Calcium 8.3 mg/dL (8.5-10.1) L 06/19/21 05:28 Corrected Calcium 9.1 mg/dL (8.5-10.1) 06/19/21 05:28 Magnesium 2.1 mg/dL (1.7-2.9) 06/18/21 05:26 Total Bilirubin 0.60 mg/dL (0.2-1.0) 06/19/21 05:28 AST 15 Units/L (15-37) 06/19/21 05:28 ALT 21 Units/L (12-78) 06/19/21 05:28 Alkaline Phosphatase 79 Units/L (46-116) 06/19/21 05:28 Creatine Kinase 128 Units/L (26-192) 06/17/21 08:48 CK-MB (CK-2) < 1.0 ng/mL (0-4.0) 06/17/21 08:48 CK/CKMB % Calc 0.8 % (<4) 06/17/21 08:48 Troponin I High Sens 30.4 ng/L (4.0-60.0) 06/17/21 08:48 Total Protein 6.1 g/dL (6.4-8.2) L 06/19/21 05:28 Albumin 3.0 g/dL (3.4-5.0) L 06/19/21 05:28 Globulin 3.1 g/dL (2.5-4.5) 06/19/21 05:28 Albumin/Globulin Ratio 1.0 Ratio (1.1-2.1) L 06/19/21 05:28 Lipase 137 Units/L (73-393) 06/16/21 11:47 Free T4 1.10 ng/dL (0.76-1.46) 06/17/21 08:48 TSH 3rd Generation 1.099 uIU/mL (0.358-3.74) 06/17/21 08:48 Specimen Type Clean catch urine 06/16/21 12:52 Urine Color Pale yellow (YELLOW) 06/16/21 12:52 Urine Appearance Clear (CLEAR) 06/16/21 12:52 Urine pH 5.0 (5.0 - 8.0) 06/16/21 12:52 Ur Specific [place] 1.030 (1.000-1.030) 06/16/21 12:52 Urine Protein 3+ (NEGATIVE) 06/16/21 12:52 Urine Glucose (UA) 4+ (NEGATIVE) 06/16/21 12:52 Urine Ketones 4+ (NEGATIVE) 06/16/21 12:52 Urine Blood 4+ (NEGATIVE) 06/16/21 12:52 Urine Nitrite Negative (NEGATIVE) 06/16/21 12:52 Urine Bilirubin Negative (NEGATIVE) 06/16/21 12:52 Urine Urobilinogen Normal (NORMAL) 06/16/21 12:52 Ur Leukocyte Esterase Negative (NEGATIVE) 06/16/21 12:52 Urine RBC 5-10 /HPF (0-3) A 06/16/21 12:52 Urine WBC 3-5 /HPF (0-5) 06/16/21 12:52 Ur Squamous Epith Cells Few /HPF (NEGATIVE) 06/16/21 12:52 Urine Bacteria Trace /HPF (NEGATIVE) 06/16/21 12:52 Urine Trichomonas Few /HPF (NEGATIVE) 06/16/21 12:52 Urine Yeast Moderate /HPF (NEGATIVE) 06/16/21 12:52 Ur Culture Indicated? No/not indicated 06/16/21 12:52 Acetone, Semi-Quant Small (NEGATIVE) H 06/18/21 05:26 SARS CoV-2 RNA Rapid YUE Negative (NEGATIVE) 06/16/21 16:04 Plan (1) Uncontrolled diabetes mellitus: Status: Acute Qualifiers: Diabetes mellitus type: type 2 Glycemic state: with hyperglycemia Qualified Code(s): E11.65 - Type 2 diabetes mellitus with hyperglycemia Plan: DKA protocol (2) Acidosis: Status: Acute
[2021-06-19] MEDS ORDERED: LANTUS SC SCH (09:00)
[2021-06-19] MEDS: PROTONIX TAB 40 MG PO SCH (09:21)
[2021-06-19] MEDS ORDERED: IMITREX TAB PO ONE (11:13)
--- NOTE | 2021-06-19 11:20 | PCM.PROG ---
Progress Note Progress Note for Day of Date of Exam: 06/19/21 Subjective Subjective: Pt is a 40 year old female past medical history of Hypothyroidism, HLD, recent diagnosis of Diabetes mellitus admitted for Uncontrolled diabetes with hyperglycemia and acidosis. This morning she is resting comfortably in bed with overall improvement in her symptoms. She still reports having a persistent headache that is not helping with fioricet. She does have central line access. Labs/imaging: Wbc 4.7, Hgb 11.9, Plt 228, Na 138, K 3.1, Creatinine 0.63, Glucose 274. Will discontinue DKA protocol including IVF D5w@100ml/h, insulin gtt. Start on Lantus 10 units and continue with scheduled FSBG. Will order imitrex for headache and CT head w/o contrast for further evaluation. Diabetes lab workup ordered for the morning. Continue home medications. Closely monitor and follow up labs/imaging. Past Medical Family Social History Past Med/Fam/Surg Hx: No changes since H&P Allergies: Allergies No Known Drug Allergies Allergy (Verified 06/16/21 12:37) Review of Systems ROS: No change since H&P Vital Signs and I&O's Vital Signs: Temperature 97.8 F Pulse Rate [Apical] 70 Pulse Rate 104 Respiratory Rate 15 Blood Pressure [Left Arm] 143/75 Blood Pressure 131/79 O2 Sat by Pulse Oximetry 99 Intake and Output: Intake & Output 06/16/21 06/17/21 06/18/21 06/19/21 23:59 23:59 23:59 23:59 Intake Total 448 / 448 4143 / 4143 3388 / 3388 768 / 768 Output Total 1200 / 1200 1400 / 1400 300 / 300 Balance 448 / 448 2943 / 2943 1987 / 1987 468 / 468 Physical Exam Oriented: Normal Eyes: Normal Ear: Normal Nose: Normal Throat: Normal Respiratory: Normal Cardiovascular: Normal : Normal Auscultation: Bowel Sounds: Normal Tenderness: Normal Skin: Normal Musculoskeletal: Normal Psychiatric: Normal Mood Description: Calm and Appropriate Affect: Normal Speech Pattern: Clear and Appropriate Laboratory and Diagnostics Result Diagrams: 06/19/21 05:28 06/19/21 05:28 Labs: 06/17/21 08:52 Blood Blood Culture - Preliminary 06/17/21 08:48 Blood Blood Culture - Preliminary Laboratory WBC 4.7 X10^3/uL (3.6-10.0) 06/19/21 05:28 RBC 4.07 X10^6/uL (3.5-5.4) 06/19/21 05:28 Hgb 11.9 g/dL (12.0-16.0) L 06/19/21 05:28 Hct 34.5 % (36.0-47.0) L 06/19/21 05:28 MCV 84.7 fL (80.0-100.0) 06/19/21 05:28 MCH 29.2 pg (27.0-34.0) 06/19/21 05:28 MCHC 34.5 g/dL (33.0-35.0) 06/19/21 05:28 RDW 13.1 % (11.6-16.5) 06/19/21 05:28 Plt Count 228 X10^3/uL (150.0-450.0) 06/19/21 05:28 MPV 10.0 fL (7.4-11.0) 06/19/21 05:28 Neut % (Auto) 42.3 % (42.0-75.0) 06/19/21 05:28 Lymph % (Auto) 40.1 % (21.0-51.0) 06/19/21 05:28 [place] % (Auto) 14.5 % (0.0-13.0) H 06/19/21 05:28 Eos % (Auto) 2.1 % (0.9-2.9) 06/19/21 05:28 Baso % (Auto) 1.0 % (0.2-1.0) 06/19/21 05:28 Neut # (Auto) 2.0 x10^3/uL (2.2-4.8) L 06/19/21 05:28 Lymph # (Auto) 1.9 X10^3/uL (1.3-2.9) 06/19/21 05:28 [place] # (Auto) 0.7 x10^3/uL (0.3-0.8) 06/19/21 05:28 Eos # (Auto) 0.1 x10^3/uL (0.0-0.2) 06/19/21 05:28 Baso # (Auto) 0.0 X10^3/uL (0.0-0.1) 06/19/21 05:28 Absolute Nucleated RBC 0.2 /100WBC 06/19/21 05:28 Sample Site Llrad 06/18/21 06:02 ABG pH 7.360 (7.35-7.45) 06/18/21 06:02 ABG pCO2 27.0 mmHg (35.0-45.0) L 06/18/21 06:02 ABG pO2 85.0 mmHg (80.0-100.0) 06/18/21 06:02 ABG HCO3 15.3 mmol/L (22-26) L* 06/18/21 06:02 ABG O2 Saturation 96.0 % (90-100) 06/18/21 06:02 ABG Base Excess -8.7 mmol/L (-2.0-2.0) L 06/18/21 06:02 Jose Test Pos 06/18/21 06:02 A-a Gradient 31.0 mmHg 06/18/21 06:02 FiO2 21.0 06/18/21 06:02 Blood Gas Comments Roseanna well-mtf 06/18/21 06:02 Sodium 134 mmol/L (136-145) L 06/19/21 05:28 Corrected Sodium 138 mmol/L (136-145) 06/19/21 05:28 Potassium 3.1 mmol/L (3.5-5.1) L 06/19/21 05:28 Chloride 103 mmol/L (98-107) 06/19/21 05:28 Carbon Dioxide 19.7 mmol/L (21-32) L 06/19/21 05:28 BUN 3 mg/dL (7-18) L 06/19/21 05:28 Creatinine 0.63 mg/dL (0.55-1.02) 06/19/21 05:28 Est GFR (MDRD) Af Amer > 60 (>60) 06/19/21 05:28 Est GFR (MDRD) Non-Af > 60 (>60) 06/19/21 05:28 Glucose 274 mg/dL (65-99) H 06/19/21 05:28 POC Glucose (mg/dL) 271 mg/dL (65-99) H 06/19/21 05:31 Hemoglobin A1c 11.8 % 06/17/21 05:00 Lactic Acid 1.4 mmol/L (0.4-2.0) 06/16/21 11:47 Calcium 8.3 mg/dL (8.5-10.1) L 06/19/21 05:28 Corrected Calcium 9.1 mg/dL (8.5-10.1) 06/19/21 05:28 Magnesium 2.1 mg/dL (1.7-2.9) 06/18/21 05:26 Total Bilirubin 0.60 mg/dL (0.2-1.0) 06/19/21 05:28 AST 15 Units/L (15-37) 06/19/21 05:28 ALT 21 Units/L (12-78) 06/19/21 05:28 Alkaline Phosphatase 79 Units/L (46-116) 06/19/21 05:28 Creatine Kinase 128 Units/L (26-192) 06/17/21 08:48 CK-MB (CK-2) < 1.0 ng/mL (0-4.0) 06/17/21 08:48 CK/CKMB % Calc 0.8 % (<4) 06/17/21 08:48 Troponin I High Sens 30.4 ng/L (4.0-60.0) 06/17/21 08:48 Total Protein 6.1 g/dL (6.4-8.2) L 06/19/21 05:28 Albumin 3.0 g/dL (3.4-5.0) L 06/19/21 05:28 Globulin 3.1 g/dL (2.5-4.5) 06/19/21 05:28 Albumin/Globulin Ratio 1.0 Ratio (1.1-2.1) L 06/19/21 05:28 Lipase 137 Units/L (73-393) 06/16/21 11:47 Free T4 1.10 ng/dL (0.76-1.46) 06/17/21 08:48 TSH 3rd Generation 1.099 uIU/mL (0.358-3.74) 06/17/21 08:48 Specimen Type Clean catch urine 06/16/21 12:52 Urine Color Pale yellow (YELLOW) 06/16/21 12:52 Urine Appearance Clear (CLEAR) 06/16/21 12:52 Urine pH 5.0 (5.0 - 8.0) 06/16/21 12:52 Ur Specific [place] 1.030 (1.000-1.030) 06/16/21 12:52 Urine Protein 3+ (NEGATIVE) 06/16/21 12:52 Urine Glucose (UA) 4+ (NEGATIVE) 06/16/21 12:52 Urine Ketones 4+ (NEGATIVE) 06/16/21 12:52 Urine Blood 4+ (NEGATIVE) 06/16/21 12:52 Urine Nitrite Negative (NEGATIVE) 06/16/21 12:52 Urine Bilirubin Negative (NEGATIVE) 06/16/21 12:52 Urine Urobilinogen Normal (NORMAL) 06/16/21 12:52 Ur Leukocyte Esterase Negative (NEGATIVE) 06/16/21 12:52 Urine RBC 5-10 /HPF (0-3) A 06/16/21 12:52 Urine WBC 3-5 /HPF (0-5) 06/16/21 12:52 Ur Squamous Epith Cells Few /HPF (NEGATIVE) 06/16/21 12:52 Urine Bacteria Trace /HPF (NEGATIVE) 06/16/21 12:52 Urine Trichomonas Few /HPF (NEGATIVE) 06/16/21 12:52 Urine Yeast Moderate /HPF (NEGATIVE) 06/16/21 12:52 Ur Culture Indicated? No/not indicated 06/16/21 12:52 Acetone, Semi-Quant Small (NEGATIVE) H 06/18/21 05:26 SARS CoV-2 RNA Rapid YUE Negative (NEGATIVE) 06/16/21 16:04 Plan (1) Uncontrolled diabetes mellitus: Status: Acute Qualifiers: Diabetes mellitus type: type 2 Glycemic state: with hyperglycemia Qualified Code(s): E11.65 - Type 2 diabetes mellitus with hyperglycemia Plan: DKA protocol (2) Acidosis: Status: Acute
[2021-06-19] MEDS: NovoLIN R (or HumuLIN R) SUBCUT PRN ×3 (11:44→20:19)
--- NOTE | 2021-06-19 14:58 | CT ---
HISTORYheadache x3 daysSTUDYBRAIN W/O CONCOMPARISONNone availableTECHNIQUEAxial images through the head was performed without contrast. CT scan was performed following ALARA (As low as Reasonably Achievable).Coronal and Sagittal reformatted images were performed.FINDINGSThe ventricles are normal in size and symmetric. There is no evidence of acute hemorrhage, mass effect or edema, no intra or extra-axial fluid collections, no hyperdense vessel.There is no evidence of sellar masses with a partial empty sella.The cervicocranial junction is unremarkable. No acute fractures, the paranasal sinuses demonstrate, no air-fluid levels, the mastoid cells are clear.IMPRESSIONNo acute intracranial abnormalities.Electronically signed by: Stacey Kaiser (Jun 19, 2021 14:57:19)
[2021-06-19] MEDS ORDERED: COLACE CAP 100 MG PO PRN (19:37)
[2021-06-19] MEDS ORDERED: MILK OF MAGNESIA PO PRN (19:37)
[2021-06-19] MEDS: SNACK - Diabetic Appropriate PO SCH (20:00)
[2021-06-19] MEDS ORDERED: SNACK - Diabetic Appropriate PO SCH (20:00)
[2021-06-19] MEDS: RESTORIL CAP 15 MG PO PRN (20:18)
[2021-06-19] MEDS: LIPITOR TAB 40 MG PO SCH (20:18)
[2021-06-19] MEDS: NEURONTIN CAP 400 MG PO SCH (20:18)
[2021-06-20] MEDS: NovoLIN R (or HumuLIN R) SUBCUT PRN ×4 (06:07→20:14)
[2021-06-20] MEDS: SYNTHROID 25 mcg TAB PO SCH (06:07)
[2021-06-20 06:57] LABS: BASOPHILS % (AUTO) 0.9 % (0.2-1.0); EOSINOPHILS # (AUTO) 0.1 x10^3/uL (0.0-0.2); EOSINOPHILS % (AUTO) 1.6 % (0.9-2.9); HEMATOCRIT 33.5 % (36.0-47.0); HEMOGLOBIN 11.4 g/dL (12.0-16.0); LYMPHOCYTES % (AUTO) 43.6 % (21.0-51.0); MEAN CORPUSCULAR HEMOGLOBIN 29.1 pg (27.0-34.0); MEAN CORPUSCULAR HGB CONC 34.1 g/dL (33.0-35.0); MEAN CORPUSCULAR VOLUME 85.2 fL (80.0-100.0); MONOCYTES # (AUTO) 0.7 x10^3/uL (0.3-0.8); MONOCYTES % (AUTO) 14.1 % (0.0-13.0); NEUTROPHILS # (AUTO) 1.9 x10^3/uL (2.2-4.8); NEUTROPHILS % (AUTO) 39.8 % (42.0-75.0); RED BLOOD COUNT 3.93 X10^6/uL (3.5-5.4); RED CELL DISTRIBUTION WIDTH 13.6 % (11.6-16.5); WHITE BLOOD COUNT 4.7 X10^3/uL (3.6-10.0)
[2021-06-20 07:46] LABS: ALANINE AMINOTRANSFERASE 26 Units/L (12-78); ALBUMIN 2.9 g/dL (3.4-5.0); ALKALINE PHOSPHATASE 80 Units/L (46-116); ASPARTATE AMINO TRANSFERASE 19 Units/L (15-37); BLOOD UREA NITROGEN 5 mg/dL (7-18); CALCIUM 8.1 mg/dL (8.5-10.1); CHLORIDE 102 mmol/L (98-107); COR NA(FOR HYPERGLY) 141 mmol/L (136-145); CREATININE 0.68 mg/dL (0.55-1.02); SODIUM 136 mmol/L (136-145); TOTAL PROTEIN 6.1 g/dL (6.4-8.2); eGFR NON BLACK RACES > 60 (>60)
[2021-06-20] MEDS: PROTONIX TAB 40 MG PO SCH (08:18)
[2021-06-20] MEDS ORDERED: LANTUS SC ONE (08:21)
[2021-06-20] MEDS ORDERED: LANTUS SC SCH (09:00)
[2021-06-20] MEDS: K-DUR TAB 20 MEQ PO PRN (09:05)
--- NOTE | 2021-06-20 14:33 | PCM.PROG ---
Progress Note Progress Note for Day of Date of Exam: 06/20/21 Subjective Subjective: Pt is a 40 year old female past medical history of Hypothyroidism, HLD, recent diagnosis of Diabetes mellitus admitted for Uncontrolled diabetes with hyperglycemia and acidosis. This morning she reports feeling better. Her headache has improved and CT head negative for acute intracranial abnormalities. She does have central line access. Labs/imaging: Wbc 4.7, Hgb 11.4, Plt 238, Na 136, K 3.5, Creatinine 0.68, Glucose 328. Yesterday patient required a total of 18 units SSI. Will increase Lantus to 15 units and continue with scheduled FSBG. Diabetes lab workup ordered this morning. Continue home medications. Closely monitor and follow up labs/imaging. Past Medical Family Social History Past Med/Fam/Surg Hx: No changes since H&P Allergies: Allergies No Known Drug Allergies Allergy (Verified 06/16/21 12:37) Review of Systems ROS: No change since H&P Vital Signs and I&O's Vital Signs: Temperature 98.5 F Pulse Rate [Apical] 70 Pulse Rate 83 Respiratory Rate 17 Blood Pressure [Left Arm] 143/75 Blood Pressure 104/56 O2 Sat by Pulse Oximetry 97 Intake and Output: Intake & Output 06/17/21 06/18/21 06/19/21 06/20/21 23:59 23:59 23:59 23:59 Intake Total 4143 / 4143 3388 / 3388 8 / 2068 220 / 220 Output Total 1200 / 1200 1400 / 1400 300 / 300 Balance 2943 / 2943 1987 / 1987 1768 / 1768 220 / 220 Physical Exam Oriented: Normal Eyes: Normal Ear: Normal Nose: Normal Throat: Normal Respiratory: Normal Cardiovascular: Normal : Normal Auscultation: Bowel Sounds: Normal Tenderness: Normal Skin: Normal Musculoskeletal: Normal Psychiatric: Normal Mood Description: Calm and Appropriate Affect: Normal Speech Pattern: Clear and Appropriate Laboratory and Diagnostics Result Diagrams: 06/20/21 05:36 06/20/21 05:36 Labs: 06/17/21 08:52 Blood Blood Culture - Preliminary 06/17/21 08:48 Blood Blood Culture - Preliminary Laboratory WBC 4.7 X10^3/uL (3.6-10.0) 06/20/21 05:36 RBC 3.93 X10^6/uL (3.5-5.4) 06/20/21 05:36 Hgb 11.4 g/dL (12.0-16.0) L 06/20/21 05:36 Hct 33.5 % (36.0-47.0) L 06/20/21 05:36 MCV 85.2 fL (80.0-100.0) 06/20/21 05:36 MCH 29.1 pg (27.0-34.0) 06/20/21 05:36 MCHC 34.1 g/dL (33.0-35.0) 06/20/21 05:36 RDW 13.6 % (11.6-16.5) 06/20/21 05:36 Plt Count 238 X10^3/uL (150.0-450.0) 06/20/21 05:36 MPV 10.0 fL (7.4-11.0) 06/20/21 05:36 Neut % (Auto) 39.8 % (42.0-75.0) L 06/20/21 05:36 Lymph % (Auto) 43.6 % (21.0-51.0) 06/20/21 05:36 [place] % (Auto) 14.1 % (0.0-13.0) H 06/20/21 05:36 Eos % (Auto) 1.6 % (0.9-2.9) 06/20/21 05:36 Baso % (Auto) 0.9 % (0.2-1.0) 06/20/21 05:36 Neut # (Auto) 1.9 x10^3/uL (2.2-4.8) L 06/20/21 05:36 Lymph # (Auto) 2.0 X10^3/uL (1.3-2.9) 06/20/21 05:36 [place] # (Auto) 0.7 x10^3/uL (0.3-0.8) 06/20/21 05:36 Eos # (Auto) 0.1 x10^3/uL (0.0-0.2) 06/20/21 05:36 Baso # (Auto) 0.0 X10^3/uL (0.0-0.1) 06/20/21 05:36 Absolute Nucleated RBC 0.1 /100WBC 06/20/21 05:36 Sample Site Llrad 06/18/21 06:02 ABG pH 7.360 (7.35-7.45) 06/18/21 06:02 ABG pCO2 27.0 mmHg (35.0-45.0) L 06/18/21 06:02 ABG pO2 85.0 mmHg (80.0-100.0) 06/18/21 06:02 ABG HCO3 15.3 mmol/L (22-26) L* 06/18/21 06:02 ABG O2 Saturation 96.0 % (90-100) 06/18/21 06:02 ABG Base Excess -8.7 mmol/L (-2.0-2.0) L 06/18/21 06:02 Jose Test Pos 06/18/21 06:02 A-a Gradient 31.0 mmHg 06/18/21 06:02 FiO2 21.0 06/18/21 06:02 Blood Gas Comments Roseanna well-mtf 06/18/21 06:02 Sodium 136 mmol/L (136-145) 06/20/21 05:36 Corrected Sodium 141 mmol/L (136-145) 06/20/21 05:36 Potassium 3.5 mmol/L (3.5-5.1) 06/20/21 05:36 Chloride 102 mmol/L (98-107) 06/20/21 05:36 Carbon Dioxide 25.0 mmol/L (21-32) 06/20/21 05:36 BUN 5 mg/dL (7-18) L 06/20/21 05:36 Creatinine 0.68 mg/dL (0.55-1.02) 06/20/21 05:36 Est GFR (MDRD) Af Amer > 60 (>60) 06/20/21 05:36 Est GFR (MDRD) Non-Af > 60 (>60) 06/20/21 05:36 Glucose 328 mg/dL (65-99) H 06/20/21 05:36 POC Glucose (mg/dL) 336 mg/dL (65-99) H 06/20/21 11:26 Hemoglobin A1c 11.8 % 06/17/21 05:00 C-Peptide ng/ml Cancelled 06/20/21 05:36 Lactic Acid 1.4 mmol/L (0.4-2.0) 06/16/21 11:47 Calcium 8.1 mg/dL (8.5-10.1) L 06/20/21 05:36 Corrected Calcium 9.0 mg/dL (8.5-10.1) 06/20/21 05:36 Magnesium 2.1 mg/dL (1.7-2.9) 06/18/21 05:26 Total Bilirubin 0.60 mg/dL (0.2-1.0) 06/20/21 05:36 AST 19 Units/L (15-37) 06/20/21 05:36 ALT 26 Units/L (12-78) 06/20/21 05:36 Alkaline Phosphatase 80 Units/L (46-116) 06/20/21 05:36 Creatine Kinase 128 Units/L (26-192) 06/17/21 08:48 CK-MB (CK-2) < 1.0 ng/mL (0-4.0) 06/17/21 08:48 CK/CKMB % Calc 0.8 % (<4) 06/17/21 08:48 Troponin I High Sens 30.4 ng/L (4.0-60.0) 06/17/21 08:48 Total Protein 6.1 g/dL (6.4-8.2) L 06/20/21 05:36 Albumin 2.9 g/dL (3.4-5.0) L 06/20/21 05:36 Globulin 3.2 g/dL (2.5-4.5) 06/20/21 05:36 Albumin/Globulin Ratio 0.9 Ratio (1.1-2.1) L 06/20/21 05:36 Lipase 137 Units/L (73-393) 06/16/21 11:47 Free T4 1.10 ng/dL (0.76-1.46) 06/17/21 08:48 TSH 3rd Generation 1.099 uIU/mL (0.358-3.74) 06/17/21 08:48 Specimen Type Clean catch urine 06/16/21 12:52 Urine Color Pale yellow (YELLOW) 06/16/21 12:52 Urine Appearance Clear (CLEAR) 06/16/21 12:52 Urine pH 5.0 (5.0 - 8.0) 06/16/21 12:52 Ur Specific [place] 1.030 (1.000-1.030) 06/16/21 12:52 Urine Protein 3+ (NEGATIVE) 06/16/21 12:52 Urine Glucose (UA) 4+ (NEGATIVE) 06/16/21 12:52 Urine Ketones 4+ (NEGATIVE) 06/16/21 12:52 Urine Blood 4+ (NEGATIVE) 06/16/21 12:52 Urine Nitrite Negative (NEGATIVE) 06/16/21 12:52 Urine Bilirubin Negative (NEGATIVE) 06/16/21 12:52 Urine Urobilinogen Normal (NORMAL) 06/16/21 12:52 Ur Leukocyte Esterase Negative (NEGATIVE) 06/16/21 12:52 Urine RBC 5-10 /HPF (0-3) A 06/16/21 12:52 Urine WBC 3-5 /HPF (0-5) 06/16/21 12:52 Ur Squamous Epith Cells Few /HPF (NEGATIVE) 06/16/21 12:52 Urine Bacteria Trace /HPF (NEGATIVE) 06/16/21 12:52 Urine Trichomonas Few /HPF (NEGATIVE) 06/16/21 12:52 Urine Yeast Moderate /HPF (NEGATIVE) 06/16/21 12:52 Ur Culture Indicated? No/not indicated 06/16/21 12:52 Acetone, Semi-Quant Small (NEGATIVE) H 06/18/21 05:26 Islet Cell Cytoplsm IgG Cancelled 06/20/21 05:36 MOY Antibody Cancelled 06/20/21 05:36 SARS CoV-2 RNA Rapid YUE Negative (NEGATIVE) 06/16/21 16:04 Miscellaneous Test Cancelled 06/20/21 05:36 Plan (1) Uncontrolled diabetes mellitus: Status: Acute Qualifiers: Diabetes mellitus type: type 2 Glycemic state: with hyperglycemia Qualified Code(s): E11.65 - Type 2 diabetes mellitus with hyperglycemia Plan: DKA protocol (2) Acidosis: Status: Acute
[2021-06-20] MEDS: NEURONTIN CAP 400 MG PO SCH (20:13)
[2021-06-20] MEDS: LIPITOR TAB 40 MG PO SCH (20:13)
[2021-06-20] MEDS: SNACK - Diabetic Appropriate PO SCH (20:22)
[2021-06-21 05:03] LABS: BASOPHILS # (AUTO) 0.1 X10^3/uL (0.0-0.1); BASOPHILS % (AUTO) 1.2 % (0.2-1.0); EOSINOPHILS # (AUTO) 0.1 x10^3/uL (0.0-0.2); EOSINOPHILS % (AUTO) 1.9 % (0.9-2.9); HEMOGLOBIN 11.2 g/dL (12.0-16.0); LYMPHOCYTES # (AUTO) 2.4 X10^3/uL (1.3-2.9); LYMPHOCYTES % (AUTO) 43.9 % (21.0-51.0); MEAN CORPUSCULAR HEMOGLOBIN 29.3 pg (27.0-34.0); MEAN CORPUSCULAR HGB CONC 34.1 g/dL (33.0-35.0); MEAN CORPUSCULAR VOLUME 85.9 fL (80.0-100.0); MEAN PLATELET VOLUME 10.4 fL (7.4-11.0); MONOCYTES # (AUTO) 0.7 x10^3/uL (0.3-0.8); MONOCYTES % (AUTO) 13.2 % (0.0-13.0); NEUTROPHILS # (AUTO) 2.2 x10^3/uL (2.2-4.8); NEUTROPHILS % (AUTO) 39.8 % (42.0-75.0); RED BLOOD COUNT 3.84 X10^6/uL (3.5-5.4); RED CELL DISTRIBUTION WIDTH 13.3 % (11.6-16.5); WHITE BLOOD COUNT 5.5 X10^3/uL (3.6-10.0)
[2021-06-21 05:14] LABS: ALANINE AMINOTRANSFERASE 34 Units/L (12-78); ALBUMIN 2.9 g/dL (3.4-5.0); ALKALINE PHOSPHATASE 85 Units/L (46-116); ASPARTATE AMINO TRANSFERASE 27 Units/L (15-37); BLOOD UREA NITROGEN 5 mg/dL (7-18); CALCIUM 8.2 mg/dL (8.5-10.1); CARBON DIOXIDE 26.9 mmol/L (21-32); CHLORIDE 102 mmol/L (98-107); COR CA(FOR HYPOALB) 9.1 mg/dL (8.5-10.1); COR NA(FOR HYPERGLY) 141 mmol/L (136-145); CREATININE 0.61 mg/dL (0.55-1.02); SODIUM 137 mmol/L (136-145); eGFR NON BLACK RACES > 60 (>60)
[2021-06-21] MEDS: NovoLIN R (or HumuLIN R) SUBCUT PRN ×2 (05:25→11:39)
[2021-06-21] MEDS: SYNTHROID 25 mcg TAB PO SCH (05:30)
[2021-06-21] MEDS: FIORICET TAB PO PRN (05:41)
[2021-06-21] MEDS: K-DUR TAB 20 MEQ PO PRN (06:03)
[2021-06-21] MEDS: PROTONIX TAB 40 MG PO SCH (08:50)
[2021-06-21] MEDS: MAGNESIUM SULFATE 1 GRAM/100 mL PREMIX 1 G/100 ML BAG IV PRN ×2 (08:51→10:01)
[2021-06-21] MEDS ORDERED: LANTUS SC SCH (09:00)
--- NOTE | 2021-06-21 09:52 | W.DIS.FURT ---
Summary of Discharge Discharge Summary of Date Date of Exam: 06/21/21 Admission Date Date of Admission: 06/16/21 Admission Diagnosis Patient Problems (Updated 06/16/21 @ 14:52 by Luca Lawrence) Uncontrolled diabetes mellitus (Acute) Acidosis (Acute) E87.2 Vomiting (Acute) R11.10 Hospital Course: Pt is a 40 year old female past medical history of Hypothyroidism, HLD, admitted for Uncontrolled diabetes with hyperglycemia and acidosis. Her treatments included DKA protocol with insulin gtt until acidosis resolved. She was then converted to Lantus and SSI that was adjusted during hospital course. Pt responded well to treatments. Diabetes lab workup has been ordered and pending, results will need follow up outpatient. Rx Lantus 20 units and Lispro SSI. Pt discharged in stable condition, instructed to follow up with pcp in 3 days. Vital Signs: Vital Signs (72 hours) 06/18/21 10:00 06/18/21 11:00 06/18/21 11:31 Temperature Pulse Rate 87 93 H Respiratory Rate 23 20 18 Blood Pressure 126/62 115/70 O2 Sat by Pulse Oximetry 98 99 06/18/21 12:00 06/18/21 12:01 06/18/21 13:00 Temperature 98.6 F Pulse Rate 93 H 108 H Respiratory Rate 18 18 26 H Blood Pressure 106/68 140/80 O2 Sat by Pulse Oximetry 99 99 06/18/21 14:00 06/18/21 15:00 06/18/21 16:00 Temperature 98.5 F Pulse Rate 93 H 92 H 100 H Respiratory Rate 20 18 19 Blood Pressure 126/71 106/52 116/63 O2 Sat by Pulse Oximetry 99 99 99 06/18/21 18:00 06/18/21 19:00 06/18/21 20:00 Temperature Pulse Rate 115 H 101 H 90 Respiratory Rate 18 17 22 Blood Pressure 125/77 135/69 124/67 O2 Sat by Pulse Oximetry 98 98 100 06/18/21 20:28 06/18/21 21:00 06/18/21 21:28 Temperature 98.1 F Pulse Rate 97 H Respiratory Rate 28 H 19 26 H Blood Pressure 128/92 O2 Sat by Pulse Oximetry 99 06/18/21 22:00 06/18/21 23:00 06/19/21 00:00 Temperature 97.5 F L Pulse Rate 109 H 107 H 83 Respiratory Rate 26 H 22 17 Blood Pressure 111/56 97/53 102/69 O2 Sat by Pulse Oximetry 95 99 97 06/19/21 01:00 06/19/21 02:00 06/19/21 03:00 Temperature Pulse Rate 90 93 H 85 Respiratory Rate 18 18 20 Blood Pressure 104/63 99/64 102/62 O2 Sat by Pulse Oximetry 97 97 99 06/19/21 04:00 06/19/21 05:00 06/19/21 06:00 Temperature 97.8 F Pulse Rate 93 H 89 85 Respiratory Rate 23 22 22 Blood Pressure 96/54 133/67 128/77 O2 Sat by Pulse Oximetry 97 97 98 06/19/21 07:00 06/19/21 08:00 06/19/21 09:00 Temperature 98 F Pulse Rate 85 104 H 86 Respiratory Rate 19 15 18 Blood Pressure 134/65 131/79 121/57 O2 Sat by Pulse Oximetry 99 99 98 06/19/21 10:00 06/19/21 11:00 06/19/21 12:00 Temperature 97.8 F Pulse Rate 100 H 92 H 87 Respiratory Rate 15 18 18 Blood Pressure 117/68 103/53 132/69 O2 Sat by Pulse Oximetry 100 93 L 98 06/19/21 13:00 06/19/21 14:00 06/19/21 15:00 Temperature Pulse Rate 102 H 91 H 94 H Respiratory Rate 17 17 18 Blood Pressure 131/80 131/80 134/65 O2 Sat by Pulse Oximetry 98 98 99 06/19/21 16:00 06/19/21 17:00 06/19/21 18:00 Temperature 98.1 F Pulse Rate 103 H 104 H 101 H Respiratory Rate 18 17 19 Blood Pressure 158/72 118/59 114/70 O2 Sat by Pulse Oximetry 100 99 99 06/19/21 19:00 06/19/21 20:00 06/19/21 21:00 Temperature 98.1 F Pulse Rate 98 H 96 H 102 H Respiratory Rate 34 H 27 H 21 Blood Pressure 108/65 106/51 114/76 O2 Sat by Pulse Oximetry 99 98 98 06/19/21 22:00 06/19/21 23:00 06/20/21 00:00 Temperature 98.7 F Pulse Rate 95 H 92 H 94 H Respiratory Rate 26 H 21 18 Blood Pressure 117/74 125/58 102/56 O2 Sat by Pulse Oximetry 98 97 97 06/20/21 01:00 06/20/21 02:00 06/20/21 03:00 Temperature Pulse Rate 96 H 96 H 98 H Respiratory Rate 18 18 24 Blood Pressure 103/58 102/60 101/61 O2 Sat by Pulse Oximetry 97 97 96 06/20/21 04:00 06/20/21 05:00 06/20/21 06:00 Temperature 98.2 F Pulse Rate 90 91 H 87 Respiratory Rate 20 19 18 Blood Pressure 104/65 119/61 97/55 O2 Sat by Pulse Oximetry 97 98 97 06/20/21 07:00 06/20/21 08:00 06/20/21 09:00 Temperature 98.2 F Pulse Rate 87 100 H 95 H Respiratory Rate 16 24 23 Blood Pressure 102/55 106/62 143/71 O2 Sat by Pulse Oximetry 98 98 98 06/20/21 10:00 06/20/21 11:00 06/20/21 12:00 Temperature 98.5 F Pulse Rate 110 H 88 85 Respiratory Rate 24 17 16 Blood Pressure 111/54 117/68 112/57 O2 Sat by Pulse Oximetry 97 99 99 06/20/21 13:00 06/20/21 14:00 06/20/21 15:00 Temperature Pulse Rate 90 83 91 H Respiratory Rate 17 17 23 Blood Pressure 122/60 104/56 110/65 O2 Sat by Pulse Oximetry 99 97 98 06/20/21 16:00 06/20/21 17:00 06/20/21 18:00 Temperature 98.4 F Pulse Rate 95 H 98 H 103 H Respiratory Rate 20 20 19 Blood Pressure 121/77 110/69 142/80 O2 Sat by Pulse Oximetry 98 99 96 06/20/21 19:00 06/20/21 20:00 06/20/21 21:00 Temperature 98.4 F Pulse Rate 93 H 91 H 91 H Respiratory Rate 21 22 17 Blood Pressure 130/70 120/57 107/62 O2 Sat by Pulse Oximetry 98 99 99 06/20/21 22:00 06/20/21 23:00 06/21/21 00:00 Temperature 98.3 F Pulse Rate 86 89 91 H Respiratory Rate 20 24 22 Blood Pressure 127/65 118/77 112/54 O2 Sat by Pulse Oximetry 98 96 98 06/21/21 01:00 06/21/21 02:00 06/21/21 03:00 Temperature Pulse Rate 85 85 89 Respiratory Rate 17 19 19 Blood Pressure 109/60 110/63 107/60 O2 Sat by Pulse Oximetry 96 97 97 06/21/21 04:00 06/21/21 05:00 06/21/21 05:41 Temperature 98.0 F Pulse Rate 88 81 Respiratory Rate 17 19 19 Blood Pressure 101/53 101/55 O2 Sat by Pulse Oximetry 98 96 06/21/21 06:00 06/21/21 06:40 06/21/21 07:00 Temperature Pulse Rate 81 85 Respiratory Rate 16 19 15 Blood Pressure 128/73 122/59 O2 Sat by Pulse Oximetry 97 98 06/21/21 08:00 06/21/21 09:00 Temperature 98.2 F Pulse Rate 88 91 H Respiratory Rate 18 21 Blood Pressure 128/86 113/68 O2 Sat by Pulse Oximetry 98 98 Labs: Laboratory Last Values WBC 5.5 X10^3/uL (3.6-10.0) 06/21/21 04:06 RBC 3.84 X10^6/uL (3.5-5.4) 06/21/21 04:06 Hgb 11.2 g/dL (12.0-16.0) L 06/21/21 04:06 Hct 33.0 % (36.0-47.0) L 06/21/21 04:06 MCV 85.9 fL (80.0-100.0) 06/21/21 04:06 MCH 29.3 pg (27.0-34.0) 06/21/21 04:06 MCHC 34.1 g/dL (33.0-35.0) 06/21/21 04:06 RDW 13.3 % (11.6-16.5) 06/21/21 04:06 Plt Count 271 X10^3/uL (150.0-450.0) 06/21/21 04:06 MPV 10.4 fL (7.4-11.0) 06/21/21 04:06 Neut % (Auto) 39.8 % (42.0-75.0) L 06/21/21 04:06 Lymph % (Auto) 43.9 % (21.0-51.0) 06/21/21 04:06 Rock % (Auto) 13.2 % (0.0-13.0) H 06/21/21 04:06 Eos % (Auto) 1.9 % (0.9-2.9) 06/21/21 04:06 Baso % (Auto) 1.2 % (0.2-1.0) H 06/21/21 04:06 Neut # (Auto) 2.2 x10^3/uL (2.2-4.8) 06/21/21 04:06 Lymph # (Auto) 2.4 X10^3/uL (1.3-2.9) 06/21/21 04:06 Rock # (Auto) 0.7 x10^3/uL (0.3-0.8) 06/21/21 04:06 Eos # (Auto) 0.1 x10^3/uL (0.0-0.2) 06/21/21 04:06 Baso # (Auto) 0.1 X10^3/uL (0.0-0.1) 06/21/21 04:06 Absolute Nucleated RBC 0.1 /100WBC 06/21/21 04:06 Sample Site [place] 06/18/21 06:02 ABG pH 7.360 (7.35-7.45) 06/18/21 06:02 ABG pCO2 27.0 mmHg (35.0-45.0) L 06/18/21 06:02 ABG pO2 85.0 mmHg (80.0-100.0) 06/18/21 06:02 ABG HCO3 15.3 mmol/L (22-26) L* 06/18/21 06:02 ABG O2 Saturation 96.0 % (90-100) 06/18/21 06:02 ABG Base Excess -8.7 mmol/L (-2.0-2.0) L 06/18/21 06:02 Jose Test Pos 06/18/21 06:02 A-a Gradient 31.0 mmHg 06/18/21 06:02 FiO2 21.0 06/18/21 06:02 Blood Gas Comments Roseanna well-mtf 06/18/21 06:02 Sodium 137 mmol/L (136-145) 06/21/21 04:06 Corrected Sodium 141 mmol/L (136-145) 06/21/21 04:06 Potassium 3.3 mmol/L (3.5-5.1) L 06/21/21 04:06 Chloride 102 mmol/L (98-107) 06/21/21 04:06 Carbon Dioxide 26.9 mmol/L (21-32) 06/21/21 04:06 BUN 5 mg/dL (7-18) L 06/21/21 04:06 Creatinine 0.61 mg/dL (0.55-1.02) 06/21/21 04:06 Est GFR (MDRD) Af Amer > 60 (>60) 06/21/21 04:06 Est GFR (MDRD) Non-Af > 60 (>60) 06/21/21 04:06 Glucose 273 mg/dL (65-99) H 06/21/21 04:06 POC Glucose (mg/dL) 258 mg/dL (65-99) H 06/21/21 04:11 Hemoglobin A1c 11.8 % 06/17/21 05:00 C-Peptide ng/ml Cancelled 06/20/21 05:36 Lactic Acid 1.4 mmol/L (0.4-2.0) 06/16/21 11:47 Calcium 8.2 mg/dL (8.5-10.1) L 06/21/21 04:06 Corrected Calcium 9.1 mg/dL (8.5-10.1) 06/21/21 04:06 Magnesium 1.7 mg/dL (1.7-2.9) 06/21/21 04:06 Total Bilirubin 0.40 mg/dL (0.2-1.0) 06/21/21 04:06 AST 27 Units/L (15-37) 06/21/21 04:06 ALT 34 Units/L (12-78) 06/21/21 04:06 Alkaline Phosphatase 85 Units/L (46-116) 06/21/21 04:06 Creatine Kinase 128 Units/L (26-192) 06/17/21 08:48 CK-MB (CK-2) < 1.0 ng/mL (0-4.0) 06/17/21 08:48 CK/CKMB % Calc 0.8 % (<4) 06/17/21 08:48 Troponin I High Sens 30.4 ng/L (4.0-60.0) 06/17/21 08:48 Total Protein 6.0 g/dL (6.4-8.2) L 06/21/21 04:06 Albumin 2.9 g/dL (3.4-5.0) L 06/21/21 04:06 Globulin 3.1 g/dL (2.5-4.5) 06/21/21 04:06 Albumin/Globulin Ratio 0.9 Ratio (1.1-2.1) L 06/21/21 04:06 Lipase 137 Units/L (73-393) 06/16/21 11:47 Free T4 1.10 ng/dL (0.76-1.46) 06/17/21 08:48 TSH 3rd Generation 1.099 uIU/mL (0.358-3.74) 06/17/21 08:48 Specimen Type Clean catch urine 06/16/21 12:52 Urine Color Pale yellow (YELLOW) 06/16/21 12:52 Urine Appearance Clear (CLEAR) 06/16/21 12:52 Urine pH 5.0 (5.0 - 8.0) 06/16/21 12:52 Ur Specific [place] 1.030 (1.000-1.030) 06/16/21 12:52 Urine Protein 3+ (NEGATIVE) 06/16/21 12:52 Urine Glucose (UA) 4+ (NEGATIVE) 06/16/21 12:52 Urine Ketones 4+ (NEGATIVE) 06/16/21 12:52 Urine Blood 4+ (NEGATIVE) 06/16/21 12:52 Urine Nitrite Negative (NEGATIVE) 06/16/21 12:52 Urine Bilirubin Negative (NEGATIVE) 06/16/21 12:52 Urine Urobilinogen Normal (NORMAL) 06/16/21 12:52 Ur Leukocyte Esterase Negative (NEGATIVE) 06/16/21 12:52 Urine RBC 5-10 /HPF (0-3) A 06/16/21 12:52 Urine WBC 3-5 /HPF (0-5) 06/16/21 12:52 Ur Squamous Epith Cells Few /HPF (NEGATIVE) 06/16/21 12:52 Urine Bacteria Trace /HPF (NEGATIVE) 06/16/21 12:52 Urine Trichomonas Few /HPF (NEGATIVE) 06/16/21 12:52 Urine Yeast Moderate /HPF (NEGATIVE) 06/16/21 12:52 Ur Culture Indicated? No/not indicated 06/16/21 12:52 Acetone, Semi-Quant Small (NEGATIVE) H 06/18/21 05:26 Islet Cell Cytoplsm IgG Cancelled 06/20/21 05:36 MOY Antibody Cancelled 06/20/21 05:36 SARS CoV-2 RNA Rapid YUE Negative (NEGATIVE) 06/16/21 16:04 Miscellaneous Test Cancelled 06/20/21 05:36 Reason For Visit: Uncontrolled DM, Acidosis, Vomiting Discharge Date Discharge Date: 06/21/21 Discharge Diagnosis All Active Problems (Updated 06/16/21 @ 14:52 by Luca Lawrence) New onset type 2 diabetes mellitus (Acute) Uncontrolled diabetes mellitus (Acute) Acidosis (Acute) Vomiting (Acute) Plan of Treatment: Continue with present treatment and follow up plan. Pt is to keep follow up appointment as instructed and take medications as ordered. Discharge Medications Discharge Medications: No Known Drug Allergies Allergy (Verified 06/16/21 12:37) New Prescriptions atorvastatin 40 mg PO HS 30 Days #30 tab 06/21/21 [Rx] insulin glargine [Lantus Solostar U-100 Insulin] 20 unit SUBCUT QAM 30 Days #15 ml 06/21/21 [Rx] insulin lispro 1 sliding scale dose SUBCUT USEASDIRECTD 30 Days #15 ml 06/21/21 [Rx] levothyroxine 12.5 mcg PO DAILY 30 Days #30 tab 06/21/21 [Rx] pantoprazole 40 mg PO DAILY 30 Days #30 tab 06/21/21 [Rx] Follow up and Referral Follow Up: 3 Days Discharge Disposition Discharge Disposition: Home Discharge Condition: Stable Discharge Plan Discharge Plan Hospital Course: Pt is a 40 year old female past medical history of Hypothyroidism, HLD, admitted for Uncontrolled diabetes with hyperglycemia and acidosis. Her treatments included DKA protocol with insulin gtt until acidosis resolved. She was then converted to Lantus and SSI that was adjusted during hospital course. Pt responded well to treatments. Diabetes lab workup has been ordered and pending, results will need follow up outpatient. Rx Lantus 20 units and Lispro SSI. Pt discharged in stable condition, instructed to follow up with pcp in 3 days. Patient Disposition: 01 HOME, SELF-CARE Condition: Stable Health Concerns: Post Hospitalization: new medications and changes needed to prevent readmission or further decline. Pt educated and given instructions on all concerns. Care Plan Goals: Problem: Fluid Volume Deficit Goal: Maintain/Improved Adequate hydration. Instructions: Follow provided instructions. Follow up with primary physician as directed. Contact primary care physician or report to the closest Emergency Room if condition worsens. Plan of Treatment: Continue with present treatment and follow up plan. Pt is to keep follow up appointment as instructed and take medications as ordered. Prescriptions: New atorvastatin 40 mg Tablet 40 mg PO HS 30 Days Qty: 30 RF: 0 levothyroxine 25 mcg Tablet 12.5 mcg PO DAILY 30 Days Qty: 30 RF: 0 pantoprazole 40 mg Tablet,Delayed Release (Dr/Ec) 40 mg PO DAILY 30 Days Qty: 30 RF: 0 Lantus Solostar U-100 Insulin 100 unit/mL (3 mL) insulin pen 20 unit subcut QAM 30 Days Qty: 15 RF: 0 insulin lispro 100 unit/mL insulin pen 1 sliding scale dose subcut USEASDIRECTD 30 Days Qty: 15 RF: 0 Discontinued metformin 500 mg tablet 500 mg PO BID Qty: 60 RF: 0 Follow ups/Referrals Follow ups/Referrals: KARINA SWAIN [Nurse Practitioner] - 06/24/21 9:00 am Instructions Instructions: Insulin Treatment for Diabetes Mellitus, Hyperglycemia, [id number], Type 2 Diabetes Mellitus, Self-Care, Adult, [id number], Diabetes Mellitus and Standards of Medical Care, Diabetic Ketoacidosis, Regular Insulin injection, Insulin Injection Instructions, Single Insulin Dose, Adult, Preventing Diabetes Mellitus Complications, Blood Glucose Monitoring, Adult, Preventing Diabetic Ketoacidosis, Diabetes Mellitus and Nutrition Stand Alone Forms: Excuse From Work or School, Precautions for COVID19, [facility], Patient Portal, Social Distancing
[2021-06-21 10:12] VITALS: BP 112/58
== END 2021-06-21 12:10 | disposition home or self-care (01) | DRG 639 ==
LOC: ER 10:39 → ICU 15:36
PROVIDERS: ADMIT Family Medicine; ATTEND Family Medicine
DX: E78.2 Mixed hyperlipidemia; E11.10 Type 2 diabetes mellitus with ketoacidosis without coma; R53.1 Weakness; R51.9 Headache, unspecified; E03.8 Other specified hypothyroidism; E11.65 Type 2 diabetes mellitus with hyperglycemia; R11.2 Nausea with vomiting, unspecified; Z20.822 Contact with and (suspected) exposure to COVID-19